=== PATIENT | female | born 1985 | race African-American/Black ===

== ENCOUNTER 2021-12-25 23:38 | Day surgery (SDC) | payer OTHER ==
[2021-12-25 23:53] VITALS: BMI 21.9
[2021-12-26] MEDS ORDERED: hydrALAZINE 20 MG/ML VIAL SLOW IVP PRN (00:16)
== END 2021-12-26 01:15 | disposition home or self-care (01) ==
LOC: CSHLD/OP 23:38
PROVIDERS: ATTEND Family Medicine
DX: O36.8130 Decreased fetal movements, third trimester, not applicable or unspecified (principal); O34.211 Maternal care for low transverse scar from previous cesarean delivery; O09.523 Supervision of elderly multigravida, third trimester; Z3A.37 37 weeks gestation of pregnancy; Z79.899 Other long term (current) drug therapy
CPT/HCPCS: 76819; 99282

== ENCOUNTER 2025-09-06 14:06 | Inpatient (IN) | payer OTHER ==
[2025-09-06] MEDS ORDERED: Bicitra 30 ML UDCUP PO PRN (14:59)
[2025-09-06] MEDS ORDERED: hydrALAZINE 20 MG/ML VIAL SLOW IVP PRN (14:59)
[2025-09-06] MEDS ORDERED: Acetaminophen 500 MG TAB PO PRN (14:59)
[2025-09-06] MEDS ORDERED: Ondansetron PF 4 MG/2 ML Vial IVP PRN ×3 (14:59→23:58)
[2025-09-06] MEDS ORDERED: Tranexamic Acid 1,000 MG/10 ML VIAL IVP PRN (14:59)
[2025-09-06] MEDS ORDERED: Diphenoxylate HCl/Atropine Tablet PO PRN ×2 (14:59)
[2025-09-06] MEDS ORDERED: Carboprost 250 MCG/ML AMP IM PRN (14:59)
[2025-09-06] MEDS ORDERED: Famotidine/PF 20 mg/2ml Vial SLOW IVP PRN (14:59)
[2025-09-06] MEDS ORDERED: Methylergonovine 0.2 MG/ML VIAL IM PRN (14:59)
[2025-09-06] MEDS ORDERED: Oxytocin 30 units/NS 500 ML 500 ML IV SCH (15:00)
[2025-09-06 15:40] VITALS: BMI 20.3
[2025-09-06 15:47] LABS: Hematocrit 33.5 % (34.9-44.5); Hemoglobin 11.3 g/dL (12.0-15.5); Mean Corpuscular Hemoglobin 30.3 pg (27.0-33.0); Mean Corpuscular Volume 89.8 fL (81.6-98.3); Platelet Count 129 10x3/uL (150-450); Red Blood Cell (RBC) Count 3.73 10x6/uL (3.90-5.03); White Blood Cell (WBC) Count 6.65 10x3/uL (3.5-10.5)
[2025-09-06 16:12] LABS: Syphilis Antibody Index 0.08 S/CO (<1.00 Non-Reactive)
[2025-09-06 16:14] LABS: HIV (1/2) Antibody/Antigen Non-Reactive (NonReactive); HIV 1/2 INDEX 0.13 S/CO (<1.00); Hep B Surf Ag - L&D Non-Reactive S/CO (NonReactive)
[2025-09-06 16:34] LABS: Cocaine Metabolite Screen Negative (Negative); THC/Cannabinoid Screen Negative (Negative); Tricyclic Screen Negative (Negative)
[2025-09-06] MEDS: metroNIDAZOLE 500 MG TAB PO SCH (17:43)
[2025-09-06] MEDS: diphenhydrAMINE 50 MG/ML VIAL IVP SCH (20:13)
[2025-09-06] MEDS ORDERED: Communication Order-Pharmacy FS SCH (23:45)
[2025-09-06] MEDS ORDERED: Ketorolac Tromethamine 30 MG (1 mL) VIAL IVP SCH (23:45)
[2025-09-06] MEDS ORDERED: Meperidine HCl/PF 25 MG (1 mL) VIAL SLOW IVP PRN (23:58)
[2025-09-07] MEDS ORDERED: Bicitra 30 ML UDCUP PO PRN
[2025-09-07] MEDS ORDERED: Famotidine/PF 20 mg/2ml Vial SLOW IVP PRN
[2025-09-07] MEDS ORDERED: Azithromycin 500 MG in Sodium Chloride 0.9% 250 ML 250 ML IVPB SCH
[2025-09-07 00:51] LABS: Analyzer IN Cardio CS NICU; RapidComm Collect By RN; pH (Cord, venous) 7.331 (7.250-7.350)
[2025-09-07 00:56] LABS: Analyzer IN Cardio CS NICU; RapidComm Collect By RN
[2025-09-07] MEDS ORDERED: Bisacodyl 10 MG SUPP PR PRN (01:23)
[2025-09-07] MEDS ORDERED: hydrALAZINE 20 MG/ML VIAL SLOW IVP PRN (01:23)
[2025-09-07] MEDS ORDERED: Simethicone Chewable 80 MG TAB PO PRN (01:23)
[2025-09-07] MEDS ORDERED: Methylergonovine 0.2 MG/ML VIAL IM PRN (01:23)
[2025-09-07] MEDS ORDERED: Ondansetron PF 4 MG/2 ML Vial IVP PRN (01:23)
[2025-09-07 01:29] LABS: Chlamydia by PCR, Vaginal Swab Not Detected (NotDetected); GC by PCR, Vaginal Swab Not Detected (NotDetected)
[2025-09-07] MEDS ORDERED: Oxytocin 30 units/NS 500 ML 500 ML IV SCH (01:30)
[2025-09-07] MEDS: Ketorolac Tromethamine 30 MG (1 mL) VIAL IVP PRN (05:59)
[2025-09-07 07:20] LABS: Hematocrit 30.4 % (34.9-44.5); Hemoglobin 10.1 g/dL (12.0-15.5); Mean Corpuscular Hemoglobin 30.0 pg (27.0-33.0); Mean Corpuscular Volume 90.2 fL (81.6-98.3); Platelet Count 115 10x3/uL (150-450); Red Blood Cell (RBC) Count 3.37 10x6/uL (3.90-5.03); White Blood Cell (WBC) Count 9.32 10x3/uL (3.5-10.5)
[2025-09-07] MEDS: CEFAZOLIN 2 GM VIAL ONE (08:41)
[2025-09-07] MEDS: Azithromycin 500 MG VIAL ONE (08:41)
[2025-09-07] MEDS: Ondansetron PF 4 MG/2 ML Vial ONE (08:42)
[2025-09-07] MEDS: Oxytocin 10 UNITS/ML VIAL ONE (08:42)
[2025-09-07] MEDS: Famotidine/PF 20 mg/2ml Vial ONE (08:42)
[2025-09-07] MEDS: Boostrix 0.5 ML (Tdap) VIAL (>/=7 yrs of age) IM ONE (08:43)
[2025-09-07] MEDS: diphenhydrAMINE 50 MG/ML VIAL ONE (08:43)
[2025-09-07] MEDS: diphenhydrAMINE 50 MG/ML VIAL IVP PRN (10:00)
[2025-09-07] MEDS: Ferrous Sulfate 325 MG TAB PO SCH (10:00)
[2025-09-07] MEDS: metroNIDAZOLE 500 MG TAB PO SCH (10:08)
[2025-09-07] MEDS: HYDROcodone/Acetaminophen 5/325 mg Tablet PO PRN (18:03)
[2025-09-07] MEDS: Ibuprofen 800 MG TAB PO SCH (21:23)
[2025-09-09 09:21] VITALS: BP 106/67; TEMP 97.9
== END 2025-09-09 12:45 | disposition home or self-care (01) | DRG 787 ==
LOC: CSHLD/OP 14:06 → CSHLD 15:48 → CSHPP 09-07 04:00
PROVIDERS: ADMIT Family Medicine; ATTEND Family Medicine
PROC: 10D00Z1 Extraction of Products of Conception, Low, Open Approach (ICD-10-PCS; principal; 2025-09-06)
DX: O48.0 Post-term pregnancy (principal); O98.32 Other infections with a predominantly sexual mode of transmission complicating childbirth; O34.211 Maternal care for low transverse scar from previous cesarean delivery; O99.344 Other mental disorders complicating childbirth; F32.A Depression, unspecified; A59.9 Trichomoniasis, unspecified; Z37.0 Single live birth; Z3A.41 41 weeks gestation of pregnancy
CPT/HCPCS: 36415; 51702; 80306; 82805; 85027; 86780; 86850; 86900; 86901; 87340; 87389; 87480; 87491; 87510; 87591; 87660; 99285; J1200; J1885; J2250; J2274; J2405; J2590; J3010

== ENCOUNTER 2025-09-30 08:24 | Emergency (ER) | payer OTHER ==
[2025-09-30] MEDS ORDERED: Fluorescein Opthalmic Strip ONE (09:05)
[2025-09-30] MEDS ORDERED: Proparacaine 0.5% Opth 15 ML BOT ONE (09:06)
[2025-09-30] MEDS ORDERED: Erythromycin Base 0.5% Oint 1 GM TUBE ONE (09:48)
== END 2025-09-30 09:55 | disposition home or self-care (01) ==
LOC: CSHERS 08:24
DX: S05.01XA Injury of conjunctiva and corneal abrasion without foreign body, right eye, initial encounter (principal); W22.8XXA Striking against or struck by other objects, initial encounter
CPT/HCPCS: 99283